=== PATIENT | male | born 1990 | race Two or more races ===

== ENCOUNTER 2021-04-17 14:30 | Emergency (ER) | payer MEDICAID ==
[~2021-04-17] VITALS: Ht 180.3 cm; Wt 79.5 kg
[2021-04-17 14:59] VITALS: BP 133/91
== END 2021-04-17 18:28 | disposition home or self-care (01) ==
LOC: ER 14:31
DX: S86.011A Strain of right Achilles tendon, initial encounter (principal); M25.571 Pain in right ankle and joints of right foot; Z72.89 Other problems related to lifestyle; X58.XXXA Exposure to other specified factors, initial encounter; Y93.89 Activity, other specified; Y92.89 Other specified places as the place of occurrence of the external cause; Y99.8 Other external cause status
CPT/HCPCS: 29515; 73610; 99283

== ENCOUNTER 2022-01-20 12:13 | Emergency (ER) | payer MEDICAID ==
[~2022-01-20] VITALS: Ht 180.3 cm; Wt 78.2 kg
[2022-01-20 12:37] VITALS: BP 131/86
== END 2022-01-20 13:19 | disposition home or self-care (01) ==
LOC: ER 12:14
DX: R19.8 Other specified symptoms and signs involving the digestive system and abdomen (principal); Z79.899 Other long term (current) drug therapy
CPT/HCPCS: 99281